=== PATIENT | female | born 2000 | race Caucasian/White ===

== ENCOUNTER 2023-09-21 19:44 | Emergency (ER) | payer OTHER ==
[~2023-09-21] VITALS: Ht 162.6 cm; Wt 65.0 kg
[2023-09-21 20:00] VITALS: PULSE 89; RESP 20; O2SAT 92
[2023-09-21] MEDS: IOHEXOL 300 MG/ML 100ML BOTTLE IJ ONE (20:34)
[2023-09-21 22:00] VITALS: BP 122/78; PULSE 86; RESP 20; O2SAT 97
== END 2023-09-21 22:30 | disposition home or self-care (01) ==
LOC: ER 19:44 → EDSEX 19:44 → EDBD 19:44 → ER 22:30
DX: S80.212A Abrasion, left knee, initial encounter (principal); S80.211A Abrasion, right knee, initial encounter; S10.91XA Abrasion of unspecified part of neck, initial encounter; V89.2XXA Person injured in unspecified motor-vehicle accident, traffic, initial encounter; Y93.89 Activity, other specified; Y92.89 Other specified places as the place of occurrence of the external cause; Y99.8 Other external cause status
CPT/HCPCS: 74177; 99285; Q9967